=== PATIENT | male | born 1985 | race Hispanic/Latino ===

== ENCOUNTER 2020-07-11 16:22 | Emergency (ER) | payer OTHER ==
--- NOTE | 2020-07-11 18:04 | ER ---
Nurse's Notes [facility] Name: Roberto Whitney Age: 35 yrs Sex: Male : 1985 Arrival Date: 07/11/2020 Time: 16:34 Bed 6 Private MD: Diagnosis: Bronchitis, not specified as acute or chronic;Acute serous otitis media, left ear Presentation: 07/11 16:40 Chief complaint: Patient states: Sore throat, fatigue for 2 days. Stiff neck. No fever ll1 or N/V/D. Coronavirus screen: Client denies travel out of the [place] in the last 14 days. fatigue, muscle pain, sore throat, loss of taste or smell, Client presents with at least one sign or symptom that may indicate coronavirus-19. Standard/surgical mask placed on the client. Ebola Screen: Patient denies travel to an Ebola-affected area in the 21 days before illness onset. Initial Sepsis Screen: Does the patient meet any 2 criteria? HR > 90 bpm. No. Patient's initial sepsis screen is negative. Risk Assessment: Do you want to hurt yourself or someone else? Patient reports no desire to harm self or others. Onset of symptoms was July 09, 2020. 16:40 Method Of Arrival: Ambulatory ll1 16:40 Acuity: KAVITHA 4 ll1 Historical: - Allergies: 16:42 No Known Allergies; ll1 - PSHx: 16:42 None; ll1 - Immunization history:: Flu vaccine is not up to date. - Social history:: Smoking status: Patient denies any tobacco usage or history of. Screenin:00 Abuse screen: Denies threats or abuse. Denies injuries from another. Nutritional hb screening: No deficits noted. Tuberculosis screening: No symptoms or risk factors identified. Fall Risk None identified. Assessment: 17:15 General: Appears in no apparent distress. Behavior is calm, cooperative. Pain: Pain hb currently is 5 out of 10 on a pain scale. Neuro: Level of Consciousness is awake, alert, obeys commands, Oriented to person, place, time, situation. Cardiovascular: Capillary refill < 3 seconds Patient's skin is warm and dry. Respiratory: Airway is patent Respiratory effort is even, unlabored, Respiratory pattern is regular, symmetrical. GI: No signs and/or symptoms were reported involving the gastrointestinal system. : No signs and/or symptoms were reported regarding the genitourinary system. EENT: Reports sore throat, runny nose. Derm: Skin is pink, warm \T\ dry. Musculoskeletal: No signs and/or symptoms reported regarding the musculoskeletal system. 18:03 Reassessment: Patient appears in no apparent distress at this time. Patient and/or hb family updated on plan of care and expected duration. Pain level reassessed. Patient is alert, oriented x 3, equal unlabored respirations, skin warm/dry/pink. Vital Signs: 16:40 BP 115 / 80; Pulse 96; Resp 18; Temp 98.2; Pulse Ox 96% ; Weight 79.38 kg; Height 5 ft. ll1 10 in. (177.80 cm); Pain 5/10; 16:40 Body Mass Index 25.11 (79.38 kg, 177.80 cm) ll1 ED Course: 16:34 Patient arrived in ED. ds1 16:39 [facility] snw 16:39 Nick Curiel MD is Attending Physician. snw 16:41 Triage completed. ll1 16:42 Arm band placed on Patient placed in an exam room, on a stretcher. ll1 17:51 Lakeisha Bone RN is Primary Nurse. ph 18:00 Patient has correct armband on for positive identification. Call light in reach. Side hb rails up X 1. 18:00 No provider procedures requiring assistance completed. hb 18:00 Patient did not have IV access during this emergency room visit. hb Administered Medications: 17:56 Drug: Zithromax 500 mg Route: PO; hb 18:10 Follow up: Response: No adverse reaction ph Outcome: 18:00 Discharged to home ambulatory, with family. hb 18:00 Condition: stable 18:00 Discharge instructions given to patient, Instructed on discharge instructions, follow up and referral plans. medication usage, Demonstrated understanding of instructions, follow-up care, medications, Prescriptions given X 1. 18:04 Discharge ordered by . snw 18:17 Patient left the ED. ph Signatures: Alla Clinton FNP-C STRESS ANALYST-Betty Feng ds1 Lakeisha Bone RN RN Re Chang RN RN Jesús Bhatti RN RN ll1
--- NOTE | 2020-07-11 18:04 | EDPHYS ---
Physician Documentation [facility] Name: Roberto Whitney Age: 35 yrs Sex: Male : 1985 Arrival Date: 07/11/2020 Time: 16:34 Bed 6 Private MD: ED Physician Nick Curiel HPI: 07/11 17:41 This 35 yrs old Male presents to ER via Ambulatory with complaints of Sore snw Throat. 17:41 The patient presents with sore throat. The patient describes throat pain as raw, snw scratchy. Onset: The symptoms/episode began/occurred suddenly, 2 day(s) ago, and became persistent. Severity of symptoms: At their worst the symptoms were moderate. Associated signs and symptoms: Pertinent positives: flu-like symptoms. The patient has not experienced similar symptoms in the past. children with similar s/s. The patient has not recently seen a physician. Historical: - Allergies: 16:42 No Known Allergies; ll1 - PSHx: 16:42 None; ll1 - Immunization history:: Flu vaccine is not up to date. - Social history:: Smoking status: Patient denies any tobacco usage or history of. ROS: 17:44 Constitutional: Negative for fever, chills, and weight loss, Eyes: Negative for injury, snw pain, redness, and discharge. 17:44 Neck: Negative for injury, pain, and swelling, Cardiovascular: Negative for chest pain, palpitations, and edema. 17:44 Abdomen/GI: Negative for abdominal pain, nausea, vomiting, diarrhea, and constipation, Back: Negative for injury and pain, : Negative for injury, bleeding, discharge, and swelling, MS/Extremity: Negative for injury and deformity, Skin: Negative for injury, rash, and discoloration, Neuro: Negative for headache, weakness, numbness, tingling, and seizure, Psych: Negative for depression, anxiety, suicide ideation, homicidal ideation, and hallucinations. 17:44 ENT: Positive for sore throat. 17:44 Respiratory: Positive for cough, with no reported sputum. Exam: 17:43 Constitutional: This is a well developed, well nourished patient who is awake, alert, snw and in no acute distress. Head/Face: Normocephalic, atraumatic. Eyes: Pupils equal round and reactive to light, extra-ocular motions intact. Lids and lashes normal. Conjunctiva and sclera are non-icteric and not injected. Cornea within normal limits. Periorbital areas with no swelling, redness, or edema. Neck: Trachea midline, no thyromegaly or masses palpated, and no cervical lymphadenopathy. Supple, full range of motion without nuchal rigidity, or vertebral point tenderness. No Meningismus. Chest/axilla: Normal chest wall appearance and motion. Nontender with no deformity. No lesions are appreciated. Cardiovascular: Regular rate and rhythm with a normal S1 and S2. No gallops, murmurs, or rubs. Normal PMI, no JVD. No pulse deficits. Abdomen/GI: Soft, non-tender, with normal bowel sounds. No distension or tympany. No guarding or rebound. No evidence of tenderness throughout. Back: No spinal tenderness. No costovertebral tenderness. Full range of motion. Skin: Warm, dry with normal turgor. Normal color with no rashes, no lesions, and no evidence of cellulitis. MS/ Extremity: Pulses equal, no cyanosis. Neurovascular intact. Full, normal range of motion. Neuro: Awake and alert, GCS 15, oriented to person, place, time, and situation. Cranial nerves II-XII grossly intact. Motor strength 5/5 in all extremities. Sensory grossly intact. Cerebellar exam normal. Normal gait. Psych: Awake, alert, with orientation to person, place and time. Behavior, mood, and affect are within normal limits. 17:43 ENT: TM's: dullness, fluid levels, on the left, Mouth: is normal, Posterior pharynx: erythema, that is moderate. 17:43 Respiratory: the patient does not display signs of respiratory distress, Respirations: normal, Breath sounds: wheezing: Vital Signs: 16:40 BP 115 / 80; Pulse 96; Resp 18; Temp 98.2; Pulse Ox 96% ; Weight 79.38 kg; Height 5 ft. ll1 10 in. (177.80 cm); Pain 5/10; 16:40 Body Mass Index 25.11 (79.38 kg, 177.80 cm) ll1 MDM: 17:23 Patient medically screened. snw 17:45 Data reviewed: vital signs, nurses notes. Data interpreted: Pulse oximetry: on room air snw is 96 %. Interpretation: acceptable. Counseling: I had a detailed discussion with the patient and/or guardian regarding: the historical points, exam findings, and any diagnostic results supporting the discharge/admit diagnosis, the presence of at least one elevated blood pressure reading (>120/80) during this emergency department visit, the need for outpatient follow up, for definitive care, to return to the emergency department if symptoms worsen or persist or if there are any questions or concerns that arise at home. Special discussion: I have referred the patient to see his PCP for further evaluation of high blood pressure. Based on the history and exam findings, there is no indication for further emergent testing or inpatient evaluation. I discussed with the patient/guardian the need to see the primary care provider for further evaluation of the symptoms. Administered Medications: 17:56 Drug: Zithromax 500 mg Route: PO; hb 18:10 Follow up: Response: No adverse reaction ph Disposition: 07/12 08:47 Co-signature as Attending Physician, Nick Curiel MD I agree with the assessment and kdr plan of care. Disposition: 07/11/20 18:04 Discharged to Home. Impression: Bronchitis, not specified as acute or chronic, Acute serous otitis media, left ear. - Condition is Stable. - Discharge Instructions: Acute Bronchitis, Adult, Otitis Media, Adult, How to Use an Inhaler, Steps to Quit Smoking, Cough, Adult. - Prescriptions for Tessalon Perles 100 mg Oral Capsule - take 1 capsule by ORAL route every 8 hours As needed; 15 capsule. Prednisone 20 mg Oral Tablet - take 2 tablet by ORAL route once daily for 5 days; 10 tablet. Albuterol Sulfate 90 mcg/actuation - inhale 1-2 puff by INHALATION route every 4-6 hours; 1 Inhaler. Zithromax 500 mg Oral Tablet - take 1 tablet by ORAL route once daily for 5 days; 5 tablet. - Work release form, Medication Reconciliation Form, Thank You Letter, Antibiotic Education, Prescription Opioid Use form. - Follow up: Emergency Department; When: As needed; Reason: Worsening of condition. Follow up: Private Physician; When: 2 - 3 days; Reason: Recheck today's complaints, Continuance of care, Re-evaluation by your physician. Signatures: Nick Curiel MD MD kdr Waters, Shelly, VALIDATION SCIENTIST-C VALIDATION SCIENTIST-[place] Lakeisha Bone RN RN ph Re Chang RN RN Jesús Bhatti RN RN ll1 Corrections: (The following items were deleted from the chart) 07/11 18:17 18:04 07/11/2020 18:04 Discharged to Home. Impression: Bronchitis, not specified as ph acute or chronic; Acute serous otitis media, left ear. Condition is Stable. Forms are Medication Reconciliation Form, Thank You Letter, Antibiotic Education, Prescription Opioid Use. Follow up: Emergency Department; When: As needed; Reason: Worsening of condition. Follow up: Private Physician; When: 2 - 3 days; Reason: Recheck today's complaints, Continuance of care, Re-evaluation by your physician. snw
[2020-07-11 18:23] VITALS: BP 115/80; TEMP 98.2; O2SAT 96
== END 2020-07-11 18:17 | disposition home or self-care (01) ==
LOC: ER 16:22
DX: J40 Bronchitis, not specified as acute or chronic (principal); H65.02 Acute serous otitis media, left ear
CPT/HCPCS: 99283